=== PATIENT | female | born 1980 | race Caucasian/White ===

== ENCOUNTER 2017-07-14 08:28 | Inpatient (IN) | payer MEDICAID ==
[~2017-07-14] VITALS: Ht 152.4 cm; Wt 100.8 kg
[~2017-07-14 08:28] MED LIST: ASPI-496 PO; ASPI-515 PO; ASPI-650 PO; CARV-39 PO; CHLO25TA PO; CLON0.1T PO; CLON0.1T12 PO; CYCL5TAB PO; DOXA2TAB PO; DOXA4TAB2 PO; HYDR-3240 PO; HYDR100T25 PO; HYDR12.58 PO; IBUP-1223 PO; LISI-167 PO; LISI40TA PO; METH750T87 PO; OMEP40CA6 PO; OXYC5TAB3 PO; PRAV20TA PO; PRAV20TA2 PO; PRAZ5CAP2 PO; SPIR50TA2 PO
[2017-07-14] MEDS ORDERED: AMLO5TAB2 PO (09:17)
[2017-07-14] MEDS ORDERED: ASPIRIN 81 MG TABLET CHEW ONE (09:27)
[2017-07-14] MEDS ORDERED: ONDANSETRON 2MG/ML, 2ML ONE (09:27)
[2017-07-14] MEDS ORDERED: HYDROmorphone 1 MG/ML, 1ML ONE ×4 (09:27→16:22)
[2017-07-14] MEDS ORDERED: LABETALOL 5MG/ML, 20ML ONE (09:28)
[2017-07-14] MEDS ORDERED: ONDANSETRON 2MG/ML, 2ML IVPush ONE (09:30)
[2017-07-14] MEDS ORDERED: ASPIRIN 81 MG TABLET CHEW PO ONE (09:30)
[2017-07-14] MEDS ORDERED: LABETALOL 5MG/ML, 20ML IVPush ONE ×2 (09:30→12:00)
[2017-07-14] MEDS ORDERED: SODIUM CHLORIDE FLUSH 10ML SYR IVF ONE (09:30)
[2017-07-14] MEDS: HYDROmorphone 1 MG/ML, 1ML IVPush PRN ×2 (09:36→10:21)
[2017-07-14 09:47] LABS: HEMATOCRIT 50.8 % (34.6-47.8); HEMOGLOBIN 17.5 g/dL (11.7-16.4); WHITE BLOOD COUNT 10.1 x10^3/uL (3.4-10)
[2017-07-14 09:59] LABS: BLOOD UREA NITROGEN 22 mg/dL (7-18)
[2017-07-14 10:05] LABS: IS PT STATUS REG ER OR PRE ER? YES
[2017-07-14] MEDS ORDERED: SODIUM CHLORIDE FLUSH 10ML SYR IVF PRN (14:00)
[2017-07-14] MEDS ORDERED: ENALAPRILAT 1.25 MG/ML, 2ML IVPush PRN (14:30)
[2017-07-14] MEDS ORDERED: LORazepam 1MG TABLET PO PRN (14:30)
[2017-07-14] MEDS ORDERED: ONDANSETRON 2MG/ML, 2ML IVPush PRN (14:30)
[2017-07-14] MEDS ORDERED: ONDANSETRON ODT 4 MG PO PRN (14:30)
[2017-07-14] MEDS ORDERED: MORPHINE SULFATE 4 MG/ML, 1ML IVPush PRN (14:30)
[2017-07-14] MEDS ORDERED: GUAIFENESIN/DM 200-20MG, 10ML UDC PO PRN (14:30)
[2017-07-14] MEDS ORDERED: POLYETHYLENE GLYCOL 17 GM PACKET PO PRN (14:30)
[2017-07-14] MEDS ORDERED: LABETALOL 5MG/ML, 20ML IVPush PRN (14:30)
[2017-07-14] MEDS ORDERED: ALBUTEROL SULFATE 2.5 MG/3 ML NPPB PRN (15:30)
[2017-07-14 15:57] VITALS: BP 162/111
[2017-07-14] MEDS: HYDROmorphone 1 MG/ML, 1ML IV PRN ×2 (16:25→20:48)
[2017-07-14 17:14] VITALS: BP 151/100
[2017-07-14] MEDS: CHLORTHALIDONE 25 MG TABLET PO SCH (17:14)
[2017-07-14] MEDS: ENOXAPARIN 40 MG/0.4 ML SQ SCH (17:14)
[2017-07-14 20:00] VITALS: BP 156/102
[2017-07-14 20:37] VITALS: BP 162/116
[2017-07-14] MEDS: CARVEDILOL 25 MG TABLET PO SCH (20:42)
[2017-07-14] MEDS: AMLODIPINE 5 MG TABLET PO SCH (20:42)
[2017-07-14] MEDS: PRAVASTATIN 20 MG TABLET PO SCH (20:42)
[2017-07-14 21:50] VITALS: BP 165/114
[2017-07-14] MEDS: HYDROcodone/APAP 5/325 TABLET PO SCH (21:51)
[2017-07-14 23:02] VITALS: BP 131/88
[2017-07-15 02:00] VITALS: BP 132/87
[2017-07-15] MEDS: HYDROmorphone 1 MG/ML, 1ML IV PRN ×2 (03:11→09:18)
[2017-07-15 06:30] VITALS: BP 128/82
[2017-07-15] MEDS: HYDROcodone/APAP 5/325 TABLET PO SCH (09:00)
[2017-07-15] MEDS: CHLORTHALIDONE 25 MG TABLET PO SCH (09:00)
[2017-07-15] MEDS: SENNA/DOCUSATE TABLET PO SCH (09:00)
[2017-07-15] MEDS ORDERED: AMLODIPINE 5 MG TABLET PO SCH (09:00)
[2017-07-15] MEDS: SPIRONOLACTONE 50 MG TABLET PO SCH (09:09)
[2017-07-15] MEDS: ASPIRIN 81 MG TABLET EC PO SCH (09:09)
[2017-07-15] MEDS: LISINOPRIL 20 MG TABLET PO SCH (09:09)
[2017-07-15] MEDS: CARVEDILOL 25 MG TABLET PO SCH ×2 (09:09→20:56)
[2017-07-15] MEDS: AMLODIPINE 5 MG TABLET PO SCH ×2 (09:09→20:56)
[2017-07-15] MEDS: OMEPRAZOLE 20 MG CAPSULE.DR PO SCH (09:09)
[2017-07-15 09:13] LABS: HEMATOCRIT 50.8 % (34.6-47.8); HEMOGLOBIN 17.4 g/dL (11.7-16.4); WHITE BLOOD COUNT 6.6 x10^3/uL (3.4-10)
[2017-07-15 09:17] LABS: BLOOD UREA NITROGEN 20 mg/dL (7-18)
[2017-07-15] MEDS ORDERED: HYDR-3241 PO (09:28)
[2017-07-15 12:38] VITALS: BP 136/86
[2017-07-15] MEDS: ENOXAPARIN 40 MG/0.4 ML SQ SCH (16:30)
[2017-07-15 20:00] VITALS: BP 126/91
[2017-07-15] MEDS: SODIUM CHLORIDE 0.9% 1,000 ML IV SCH (20:55)
[2017-07-15] MEDS: PRAVASTATIN 20 MG TABLET PO SCH (20:55)
[2017-07-16 00:36] VITALS: BP 114/76
[2017-07-16 04:00] VITALS: BP 116/82
[2017-07-16 05:58] LABS: HEMATOCRIT 50.9 % (34.6-47.8); HEMOGLOBIN 17.2 g/dL (11.7-16.4)
[2017-07-16 06:08] LABS: BLOOD UREA NITROGEN 21 mg/dL (7-18)
[2017-07-16] MEDS: SODIUM CHLORIDE 0.9% 1,000 ML IV SCH ×2 (06:09→13:00)
[2017-07-16 06:12] LABS: ASPARTATE AMINO TRANSFERASE 15 U/L (15-37)
[2017-07-16 07:45] VITALS: BP 125/86
[2017-07-16] MEDS: SENNA/DOCUSATE TABLET PO SCH (08:05)
[2017-07-16] MEDS: CHLORTHALIDONE 25 MG TABLET PO SCH (08:05)
[2017-07-16] MEDS: SPIRONOLACTONE 50 MG TABLET PO SCH (08:07)
[2017-07-16] MEDS: OMEPRAZOLE 20 MG CAPSULE.DR PO SCH (08:07)
[2017-07-16] MEDS: ASPIRIN 81 MG TABLET EC PO SCH (08:07)
[2017-07-16] MEDS: LISINOPRIL 20 MG TABLET PO SCH (08:07)
[2017-07-16] MEDS: AMLODIPINE 5 MG TABLET PO SCH (08:07)
[2017-07-16] MEDS: CARVEDILOL 25 MG TABLET PO SCH (08:07)
[2017-07-16] MEDS ORDERED: AMLO5TAB2 PO (09:49)
[2017-07-16] MEDS ORDERED: CHLO25TA PO (09:49)
[2017-07-16 10:30] VITALS: BP 119/79
== END 2017-07-16 13:07 | disposition home or self-care (01) | DRG 305 ==
LOC: ED 10:57 → EDIP 13:31 → 4EST 15:51
PROVIDERS: ADMIT Hospitalist; ATTEND Hospitalist
DX: I13.10 Hypertensive heart and chronic kidney disease without heart failure, with stage 1 through stage 4 chronic kidney disease, or unspecified chronic kidney disease (principal); D75.1 Secondary polycythemia; N18.3 Chronic kidney disease, stage 3 (moderate); Z68.41 Body mass index [BMI] 40.0-44.9, adult; E66.01 Morbid (severe) obesity due to excess calories; M54.5 Low back pain; E78.5 Hyperlipidemia, unspecified; H53.8 Other visual disturbances; F12.90 Cannabis use, unspecified, uncomplicated; Z79.82 Long term (current) use of aspirin; Z79.899 Other long term (current) drug therapy; Z87.891 Personal history of nicotine dependence; Z98.891 History of uterine scar from previous surgery; Z88.8 Allergy status to other drugs, medicaments and biological substances
CPT/HCPCS: 36415; 70450; 71010; 80048; 80053; 81003; 82040; 82570; 84156; 84484; 85025; 93005; 93975; 96374; 96375; 96376; J1170; J1650; J2405; Q0162; J7030

== ENCOUNTER 2018-05-21 10:02 | Inpatient (IN) | payer MEDICAID ==
[~2018-05-21] VITALS: Ht 154.9 cm; Wt 95.3 kg
[~2018-05-21 10:02] MED LIST changes: +AMLO5TAB2 PO; +ATOR40TA78 PO; +HYDR-3241 PO; +HYDR-3245 PO; +HYDR25TA6 PO; +ISOS40TA17 PO; +LABE200T6 PO; +LABE300T2 PO; +MINO2.5T PO; -SPIR50TA2 PO; +SPIR50TA4 PO
[2018-05-21] MEDS ORDERED: LABETALOL 5MG/ML, 20ML IVPush ONE (10:32)
[2018-05-21] MEDS ORDERED: LABETALOL 5MG/ML, 20ML ONE (10:56)
[2018-05-21] MEDS ORDERED: LISINOPRIL 20 MG TABLET ONE (10:56)
[2018-05-21] MEDS ORDERED: ONDANSETRON 2MG/ML, 2ML IVPush ONE (11:00)
[2018-05-21] MEDS ORDERED: SODIUM CHLORIDE FLUSH 10ML SYR IVF ONE (11:00)
[2018-05-21] MEDS ORDERED: LISINOPRIL 20 MG TABLET PO ONE (11:00)
[2018-05-21 11:02] LABS: BASOPHILS # (AUTO) 0.03 x10^3/uL (0-0.1); BASOPHILS % (AUTO) 0 % (0-1); EOSINOPHILS # (AUTO) 0.07 x10^3/uL (0-0.4); EOSINOPHILS % (AUTO) 1 % (1-7); LYMPHOCYTES # (AUTO) 1.99 x10^3/uL (1-3.4); LYMPHOCYTES % (AUTO) 21 % (22-44); MD NO; MEAN CORPUSCULAR HEMOGLOBIN 31.8 pg (27.0-34.8); MEAN CORPUSCULAR HGB CONC 34.2 g/dL (32.4-35.8); MEAN CORPUSCULAR VOLUME 92.9 fL (80-100); MEAN PLATELET VOLUME 9.1 fL (7.4-10.4); MONOCYTES # (AUTO) 0.53 x10^3/uL (0.2-0.8); MONOCYTES % (AUTO) 6 % (2-9); NEUTROPHILS # (AUTO) 7.08 x10^3/uL (1.8-6.8); NEUTROPHILS % (AUTO) 73 % (42-75); PLATELET COUNT 166 x10^3/uL (130-400); RED BLOOD COUNT 5.48 x10^6/uL (3.82-5.3); RED CELL DISTRIBUTION WIDTH 13.7 % (9.6-15.2)
[2018-05-21 11:07] LABS: ALBUMIN 3.8 g/dL (3.4-5.0); ANION GAP 7 mmol/L (5-15); CHLORIDE 111 mmol/L (98-107); CREATININE 1.19 mg/dL (0.55-1.02)
[2018-05-21] MEDS ORDERED: ONDANSETRON 2MG/ML, 2ML ONE (11:08)
[2018-05-21] MEDS ORDERED: HYDROmorphone 2 MG/ML, 1ML ONE ×2 (11:09→12:12)
[2018-05-21] MEDS: HYDROmorphone 2 MG/ML, 1ML IVPush PRN ×2 (11:13→12:13)
[2018-05-21] MEDS ORDERED: LABETALOL 5MG/ML, 20ML IVPush STA (12:29)
[2018-05-21] MEDS ORDERED: ACETAMINOPHEN 325 MG TABLET PO PRN (13:00)
[2018-05-21] MEDS ORDERED: LABETALOL 5MG/ML, 20ML IVPush PRN (13:00)
[2018-05-21] MEDS ORDERED: ENALAPRILAT 1.25 MG/ML, 2ML IVPush PRN (13:00)
[2018-05-21] MEDS ORDERED: hydrALAzine 20 MG/ML, 1ML IVPush PRN (13:00)
[2018-05-21] MEDS ORDERED: LABETALOL 5MG/ML, 20ML IVPush SCH (13:00)
[2018-05-21] MEDS ORDERED: HEPARIN 5,000 UNITS/ML, 1ML SQ SCH (13:00)
[2018-05-21 14:00] VITALS: BP 200/138
[2018-05-21] MEDS ORDERED: HYDR-879 PO (14:13)
[2018-05-21] MEDS ORDERED: OMEP40CA6 PO (14:22)
[2018-05-21] MEDS ORDERED: DOXA8TAB63 PO (14:22)
[2018-05-21] MEDS ORDERED: ISOS40TA11 PO (14:22)
[2018-05-21] MEDS ORDERED: ASPI-496 PO (14:22)
[2018-05-21] MEDS ORDERED: LABE200T6 PO (14:22)
[2018-05-21] MEDS ORDERED: MINO2.5T PO (14:22)
[2018-05-21] MEDS ORDERED: ATOR40TA PO (14:22)
[2018-05-21] MEDS ORDERED: PRAV20TA2 PO (14:22)
[2018-05-21] MEDS ORDERED: LISI40TA PO (14:22)
[2018-05-21] MEDS ORDERED: IBUPROFEN 200 MG TABLET PO PRN (15:00)
[2018-05-21] MEDS ORDERED: ASA/APAP/ CAFFEINE TABLET PO PRN (15:00)
[2018-05-21] MEDS ORDERED: SUMATRIPTAN 25 MG TABLET PO PRN (15:00)
[2018-05-21] MEDS ORDERED: BUTALB/APAP/CAFFEINE 50MG/325MG/40MG PO PRN (15:00)
[2018-05-21] MEDS ORDERED: HYDROcodone/APAP 10/325 MG TABLET PO PRN (15:30)
[2018-05-21 15:55] VITALS: BP 196/140
[2018-05-21] MEDS ORDERED: ISOSORBIDE DINITRATE 20 MG TABLET PO SCH (16:00)
[2018-05-21] MEDS ORDERED: LORazepam 2 MG/ML, 1ML IVPush ONE (16:30)
[2018-05-21] MEDS ORDERED: DOXAZOSIN 2MG TABLET PO SCH (21:00)
[2018-05-21] MEDS ORDERED: LISINOPRIL 20 MG TABLET PO SCH (21:00)
[2018-05-21] MEDS ORDERED: PRAVASTATIN 20 MG TABLET PO SCH (21:00)
[2018-05-21] MEDS ORDERED: LABETALOL 200 MG TABLET PO SCH (21:00)
[2018-05-22] MEDS ORDERED: OMEPRAZOLE 20 MG CAPSULE.DR PO SCH (09:00)
[2018-05-22] MEDS ORDERED: ASPIRIN 81 MG TABLET EC PO SCH (09:00)
[2018-05-22] MEDS ORDERED: MINOXIDIL 2.5 MG TABLET PO SCH (09:00)
== END 2018-05-21 16:41 | disposition left against medical advice (07) | DRG 305 ==
LOC: ED 11:09 → EDIP 12:30 → OBSVTOIN 12:56 → 4EST 13:42
PROVIDERS: ADMIT Internal Medicine; ATTEND Hospitalist
DX: I16.9 Hypertensive crisis, unspecified (principal); F11.20 Opioid dependence, uncomplicated; I42.9 Cardiomyopathy, unspecified; N17.9 Acute kidney failure, unspecified; E66.01 Morbid (severe) obesity due to excess calories; E78.00 Pure hypercholesterolemia, unspecified; G89.29 Other chronic pain; K21.9 Gastro-esophageal reflux disease without esophagitis; Z90.49 Acquired absence of other specified parts of digestive tract; N18.3 Chronic kidney disease, stage 3 (moderate); H54.62 Unqualified visual loss, left eye, normal vision right eye; I13.10 Hypertensive heart and chronic kidney disease without heart failure, with stage 1 through stage 4 chronic kidney disease, or unspecified chronic kidney disease; Z88.5 Allergy status to narcotic agent; Z88.8 Allergy status to other drugs, medicaments and biological substances
CPT/HCPCS: 36415; 71045; 80048; 82040; 85025; 93005; 96374; 96375; 96376; 99285; J1170; J2405; G0378

== ENCOUNTER → 2019-01-13 | Outpatient (CLI) | payer MEDICAID ==
[~2019-01-13] MED LIST changes: +AMLO-150 PO; -AMLO5TAB2 PO; +ATOR40TA PO; -CLON0.1T PO; +CLON0.1T22 PO; +DOXA8TAB63 PO; +HYDR-3622 PO; -HYDR12.58 PO; +HYDROCHLOROTH12.5 MG PO; +ISOS40TA11 PO
== END | disposition home or self-care (01) ==
LOC: CFH 09:03
PROVIDERS: ATTEND Nurse Practitioner
DX: M51.16 Intervertebral disc disorders with radiculopathy, lumbar region (principal); M48.061 Spinal stenosis, lumbar region without neurogenic claudication; M43.16 Spondylolisthesis, lumbar region
CPT/HCPCS: 72114

== ENCOUNTER 2019-03-12 08:06 | Outpatient (CLI) | payer MEDICAID ==
[2019-03-12] MEDS ORDERED: SPIR25TA5 PO (17:35)
== END 2019-03-12 23:59 | disposition home or self-care (01) ==
LOC: LAB 08:06 → CFH 23:59
PROVIDERS: ATTEND Nurse Practitioner
DX: M25.562 Pain in left knee (principal)

== ENCOUNTER 2019-03-12 09:29 | Inpatient (IN) | payer MEDICAID ==
[~2019-03-12] VITALS: Ht 152.4 cm; Wt 95.7 kg
--- NOTE | 2019-03-12 09:53 | NUR ---
First contact with pt. 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 Pt also c/o AU. A&O x4, no neuro defecits noted. Pt placed in gown, positioned for comfort in bed. Continuous heart, oxygen and BP monitors applied, all safety measures observed.
[2019-03-12] MEDS ORDERED: LABETALOL 5MG/ML, 20ML IVPush ONE (10:00)
[2019-03-12] MEDS ORDERED: METOCLOPRAMIDE 5 MG/ML, 2ML IVPush ONE (10:00)
[2019-03-12] MEDS ORDERED: METOCLOPRAMIDE 5 MG/ML, 2ML ONE (10:15)
--- NOTE | 2019-03-12 10:18 | NUR ---
Med requested from pharmacy
[2019-03-12] MEDS ORDERED: ENALAPRILAT 1.25 MG/ML, 1ML ONE ×2 (10:21→11:32)
[2019-03-12] MEDS ORDERED: LABETALOL 5 MG/ML SYRINGE IVPush ONE (10:30)
[2019-03-12] MEDS ORDERED: ENALAPRILAT 1.25 MG/ML, 2ML IV ONE ×2 (10:30→11:30)
--- NOTE | 2019-03-12 10:31 | NUR ---
Pt medicated per DEC. Awaiting Labetalol from pharmacy.
[2019-03-12 10:40] LABS: BASOPHILS # (AUTO) 0.02 x10^3/uL (0-0.1); BASOPHILS % (AUTO) 0 % (0-1); EOSINOPHILS # (AUTO) 0.03 x10^3/uL (0-0.4); EOSINOPHILS % (AUTO) 0 % (1-7); LYMPHOCYTES % (AUTO) 18 % (22-44); MD NO; MEAN CORPUSCULAR HEMOGLOBIN 32.2 pg (27.0-34.8); MEAN CORPUSCULAR HGB CONC 33.6 g/dL (32.4-35.8); MEAN CORPUSCULAR VOLUME 95.9 fL (80-100); MEAN PLATELET VOLUME 9.5 fL (7.4-10.4); MONOCYTES # (AUTO) 0.43 x10^3/uL (0.2-0.8); MONOCYTES % (AUTO) 5 % (2-9); NEUTROPHILS # (AUTO) 7.39 x10^3/uL (1.8-6.8); NEUTROPHILS % (AUTO) 77 % (42-75); PLATELET COUNT 186 x10^3/uL (130-400); RED BLOOD COUNT 5.84 x10^6/uL (3.82-5.3); RED CELL DISTRIBUTION WIDTH 13.3 % (9.6-15.2)
[2019-03-12 10:41] LABS: ALBUMIN 4.1 g/dL (3.4-5.0); ANION GAP 9 mmol/L (5-15); CALCIUM 9.6 mg/dL (8.5-10.1); CHLORIDE 108 mmol/L (98-107); CREATININE 1.54 mg/dL (0.55-1.02)
--- NOTE | 2019-03-12 10:43 | NUR ---
Labetalol received from pharmacy. Pt medicated per DEC, denies other needs.
[2019-03-12] MEDS ORDERED: HYDROcodone/APAP 10/325 MG TABLET ONE (10:59)
[2019-03-12] MEDS ORDERED: HYDROcodone/APAP 10/325 MG TABLET PO ONE (11:00)
--- NOTE | 2019-03-12 11:52 | NUR ---
TASK RN: FIRST CONTACT WITH PT. RECEIVED BEDSIDE REPORT FROM JITENDRA CUETO. ALL QUESTIONS ANSWERED. Pt resting on gurney connected to NIBP, continous pulse ox, and clinical research monitor. Pt received medications per EMAR from primary RN prior to Task RN taking care of pt. Pt is hypertensive at 227/128, pt received medicaitons for hypertension. When pt's blood pressure is stable pt will go to [facility]. NADN. Both bedrails up for safety measures. Call light within reach. Family at bedside.
--- NOTE | 2019-03-12 12:41 | NUR ---
Pt in MRI at this time.
[2019-03-12] MEDS ORDERED: ASPIRIN 325 MG TABLET PO ONE (14:00)
[2019-03-12] MEDS ORDERED: ASPIRIN 325 MG TABLET ONE (14:12)
[2019-03-12] MEDS ORDERED: ENALAPRILAT 1.25 MG/ML, 2ML IV PRN (15:00)
[2019-03-12] MEDS ORDERED: LABETALOL 5 MG/ML SYRINGE IV PRN (15:00)
[2019-03-12] MEDS ORDERED: HYDROcodone/APAP 10/325 MG TABLET PO PRN (15:00)
[2019-03-12] MEDS ORDERED: HYDROmorphone 2 MG/ML, 1ML ONE (15:15)
[2019-03-12] MEDS: HYDROmorphone 2 MG/ML, 1ML IVPush PRN ×3 (15:21→23:37)
[2019-03-12] MEDS: ENOXAPARIN 40 MG/0.4 ML SQ SCH (15:21)
[2019-03-12] MEDS: ONDANSETRON 2MG/ML, 2ML IVPush PRN ×2 (15:24→23:37)
[2019-03-12] MEDS ORDERED: POTASSIUM CHLORIDE 20 MEQ TAB.ER.PRT PO ONE (15:30)
[2019-03-12] MEDS ORDERED: SPIR25TA5 PO (17:35)
[2019-03-12] MEDS: PRAVASTATIN 20 MG TABLET PO SCH (20:56)
[2019-03-12] MEDS: LATANOPROST OPHTH 0.005%, 2.5ML EACHEYE SCH (20:57)
[2019-03-13 04:50] LABS: CHOL/HDL RATIO 3.8; LDL/HDL RATIO 1.7 (0.5-3.0)
[2019-03-13] MEDS: HYDROmorphone 2 MG/ML, 1ML IVPush PRN ×4 (05:46→22:42)
[2019-03-13 09:11] LABS: BASOPHILS # (AUTO) 0.04 x10^3/uL (0-0.1); BASOPHILS % (AUTO) 0 % (0-1); EOSINOPHILS # (AUTO) 0.15 x10^3/uL (0-0.4); EOSINOPHILS % (AUTO) 2 % (1-7); LYMPHOCYTES # (AUTO) 2.82 x10^3/uL (1-3.4); LYMPHOCYTES % (AUTO) 31 % (22-44); MD NO; MEAN CORPUSCULAR HEMOGLOBIN 31.9 pg (27.0-34.8); MEAN CORPUSCULAR HGB CONC 33.4 g/dL (32.4-35.8); MEAN CORPUSCULAR VOLUME 95.6 fL (80-100); MONOCYTES # (AUTO) 0.56 x10^3/uL (0.2-0.8); MONOCYTES % (AUTO) 6 % (2-9); NEUTROPHILS % (AUTO) 61 % (42-75); PLATELET COUNT 147 x10^3/uL (130-400); RED BLOOD COUNT 5.38 x10^6/uL (3.82-5.3); RED CELL DISTRIBUTION WIDTH 13.4 % (9.6-15.2)
[2019-03-13 09:21] LABS: ANION GAP 8 mmol/L (5-15); CALCIUM 8.3 mg/dL (8.5-10.1); CHLORIDE 109 mmol/L (98-107); CREATININE 1.38 mg/dL (0.55-1.02)
[2019-03-13] MEDS ORDERED: AMLODIPINE 5 MG TABLET PO ONE (09:30)
[2019-03-13] MEDS ORDERED: POTASSIUM CHLORIDE 20 MEQ TAB.ER.PRT PO ONE (09:30)
[2019-03-13] MEDS: ASPIRIN 81 MG TABLET EC PO SCH (10:10)
[2019-03-13] MEDS: DOXAZOSIN 2MG TABLET PO SCH ×2 (10:10→21:05)
[2019-03-13] MEDS: LISINOPRIL 20 MG TABLET PO SCH ×2 (10:10→21:05)
[2019-03-13] MEDS: LABETALOL 200 MG TABLET PO SCH ×3 (10:11→21:04)
--- NOTE | 2019-03-13 10:42 | NUR ---
REC: Regular/thins Addendum: 03/13/19 at 1042 by Vilma HERNANDEZ Amended: Links added.
[2019-03-13] MEDS: ENOXAPARIN 40 MG/0.4 ML SQ SCH (16:00)
[2019-03-13 16:58] VITALS: BP 145/87
[2019-03-13 18:55] VITALS: BP 131/90
[2019-03-13] MEDS: LATANOPROST OPHTH 0.005%, 2.5ML EACHEYE SCH (21:03)
[2019-03-13] MEDS: PRAVASTATIN 20 MG TABLET PO SCH (21:04)
[2019-03-13] MEDS ORDERED: CALCIUM CARBONATE 500 MG TAB.CHEW PO PRN (22:00)
[2019-03-13] MEDS ORDERED: OMEPRAZOLE 20 MG CAPSULE.DR PO SCH (22:00)
[2019-03-14 00:21] VITALS: BP 155/101
[2019-03-14 05:17] LABS: BASOPHILS # (AUTO) 0.04 x10^3/uL (0-0.1); BASOPHILS % (AUTO) 1 % (0-1); EOSINOPHILS # (AUTO) 0.17 x10^3/uL (0-0.4); EOSINOPHILS % (AUTO) 2 % (1-7); LYMPHOCYTES # (AUTO) 2.09 x10^3/uL (1-3.4); LYMPHOCYTES % (AUTO) 24 % (22-44); MD NO; MEAN CORPUSCULAR HEMOGLOBIN 32.5 pg (27.0-34.8); MEAN CORPUSCULAR HGB CONC 33.7 g/dL (32.4-35.8); MEAN CORPUSCULAR VOLUME 96.6 fL (80-100); MEAN PLATELET VOLUME 8.7 fL (7.4-10.4); MONOCYTES # (AUTO) 0.53 x10^3/uL (0.2-0.8); MONOCYTES % (AUTO) 6 % (2-9); NEUTROPHILS # (AUTO) 5.81 x10^3/uL (1.8-6.8); NEUTROPHILS % (AUTO) 67 % (42-75); PLATELET COUNT 160 x10^3/uL (130-400); RED BLOOD COUNT 4.93 x10^6/uL (3.82-5.3); RED CELL DISTRIBUTION WIDTH 13.5 % (9.6-15.2)
[2019-03-14 05:34] LABS: ANION GAP 7 mmol/L (5-15); CALCIUM 8.5 mg/dL (8.5-10.1); CHLORIDE 108 mmol/L (98-107)
[2019-03-14 05:39] LABS: ALANINE AMINOTRANSFERASE 19 U/L (12-78); ALBUMIN 3.2 g/dL (3.4-5.0); ALKALINE PHOSPHATASE 59 U/L (45-117); BILIRUBIN,TOTAL 1.1 mg/dL (0.2-1.0); CREATININE 1.36 mg/dL (0.55-1.02); TOTAL PROTEIN 6.1 g/dL (6.4-8.2)
[2019-03-14 05:41] VITALS: BP 158/91
[2019-03-14] MEDS: LABETALOL 200 MG TABLET PO SCH (05:42)
[2019-03-14 07:08] VITALS: BP 150/96
[2019-03-14] MEDS ORDERED: AMLODIPINE 5 MG TABLET PO SCH (09:00)
[2019-03-14] MEDS: ASPIRIN 81 MG TABLET EC PO SCH (09:01)
[2019-03-14] MEDS: DOXAZOSIN 2MG TABLET PO SCH (09:01)
[2019-03-14] MEDS: LISINOPRIL 20 MG TABLET PO SCH (09:02)
[2019-03-14] MEDS: HYDROmorphone 2 MG/ML, 1ML IVPush PRN (09:48)
[2019-03-14] MEDS ORDERED: LATA2.5D3 EACHEYE (11:58)
[2019-03-14] MEDS ORDERED: AMLO-150 PO (11:58)
[2019-03-14] MEDS ORDERED: LABE200T6 PO (11:58)
[2019-03-14] MEDS ORDERED: LISI-170 PO (11:58)
[2019-03-14] MEDS ORDERED: DOXA2TAB9 PO (11:58)
== END 2019-03-14 14:27 | disposition home health service (06) | DRG 65 ==
LOC: ED 11:17 → EDIP 12:02 → CCU 14:31 → 4WST 03-13 16:09
PROVIDERS: ADMIT Internal Medicine; ATTEND Internal Medicine
DX: I63.9 Cerebral infarction, unspecified (principal); I16.1 Hypertensive emergency; F11.20 Opioid dependence, uncomplicated; I42.9 Cardiomyopathy, unspecified; I50.20 Unspecified systolic (congestive) heart failure; N17.9 Acute kidney failure, unspecified; D75.1 Secondary polycythemia; E78.00 Pure hypercholesterolemia, unspecified; E78.5 Hyperlipidemia, unspecified; E87.6 Hypokalemia; G89.29 Other chronic pain; H54.61 Unqualified visual loss, right eye, normal vision left eye; H54.62 Unqualified visual loss, left eye, normal vision right eye; I12.9 Hypertensive chronic kidney disease with stage 1 through stage 4 chronic kidney disease, or unspecified chronic kidney disease; H53.8 Other visual disturbances; K21.9 Gastro-esophageal reflux disease without esophagitis; N18.3 Chronic kidney disease, stage 3 (moderate); Z87.891 Personal history of nicotine dependence; Z90.01 Acquired absence of eye; Z91.14 Patient's other noncompliance with medication regimen; Z90.49 Acquired absence of other specified parts of digestive tract; Z88.5 Allergy status to narcotic agent; Z88.8 Allergy status to other drugs, medicaments and biological substances; Z79.82 Long term (current) use of aspirin; Z79.899 Other long term (current) drug therapy; Z91.040 Latex allergy status; Z91.018 Allergy to other foods
CPT/HCPCS: 0399T; 36415; 70540; 70544; 70551; 80048; 80053; 80061; 82040; 85025; 87081; 93005; 93306; 93880; 96365; 96375; G0378; J1170; J1650; J2405; J7060; J2765; J7050

== ENCOUNTER 2019-12-13 12:12 | Emergency (ER) | payer MEDICAID ==
[~2019-12-13] VITALS: Ht 152.4 cm; Wt 87.9 kg
[~2019-12-13 12:12] MED LIST changes: +DOXA2TAB9 PO; +LATA2.5D3 EACHEYE; +LISI-170 PO; +OMEP40CA42 PO; -OMEP40CA6 PO; +SPIR25TA5 PO
[2019-12-13] MEDS ORDERED: SODIUM CHLORIDE 0.9% 1,000 ML IV ONE (12:35)
[2019-12-13] MEDS ORDERED: ONDANSETRON 2MG/ML, 2ML ONE (12:47)
[2019-12-13] MEDS ORDERED: ONDANSETRON 2MG/ML, 2ML IVPush ONE (13:00)
[2019-12-13] MEDS ORDERED: SODIUM CHLORIDE FLUSH 10ML SYR IVF ONE (13:00)
[2019-12-13] MEDS ORDERED: SODIUM CHLORIDE 0.9% 1,000ML IVBOLUS ONE (13:00)
[2019-12-13 13:03] LABS: BASOPHILS # (AUTO) 0.03 x10^3/uL (0-0.1); BASOPHILS % (AUTO) 0 % (0-1); EOSINOPHILS # (AUTO) 0.32 x10^3/uL (0-0.4); EOSINOPHILS % (AUTO) 4 % (1-7); LYMPHOCYTES % (AUTO) 27 % (22-44); MD NO; MEAN CORPUSCULAR HEMOGLOBIN 31.3 pg (27.0-34.8); MEAN CORPUSCULAR HGB CONC 33.7 g/dL (32.4-35.8); MEAN PLATELET VOLUME 9.1 fL (7.4-10.4); MONOCYTES # (AUTO) 0.79 x10^3/uL (0.2-0.8); MONOCYTES % (AUTO) 11 % (2-9); NEUTROPHILS % (AUTO) 58 % (42-75); PLATELET COUNT 161 x10^3/uL (130-400); RED BLOOD COUNT 5.93 x10^6/uL (3.82-5.3); RED CELL DISTRIBUTION WIDTH 12.9 % (9.6-15.2)
[2019-12-13 13:11] LABS: ALANINE AMINOTRANSFERASE 30 U/L (12-78); ALBUMIN 3.8 g/dL (3.4-5.0); ANION GAP 13 mmol/L (5-15); CALCIUM 9.1 mg/dL (8.5-10.1); CHLORIDE 101 mmol/L (98-107); CREATININE 1.67 mg/dL (0.55-1.02)
[2019-12-13 13:14] LABS: ALKALINE PHOSPHATASE 68 U/L (45-117); BILIRUBIN,TOTAL 0.4 mg/dL (0.2-1.0); TOTAL PROTEIN 8.2 g/dL (6.4-8.2)
--- NOTE | 2019-12-13 13:23 | NUR ---
BACK FROM XR. MEDS PER DEC. C/O AU, DIZZY, NAUSEA IMPROVED. FLUIDS INFUSED.
--- NOTE | 2019-12-13 14:02 | NUR ---
BREAK RN: PT SITTING UP ON GURNEY AWAKE & COMFORTABLE, RESPONDS APPROP TO STAFF, NAD, [place]ANDA[place]IES [place] AT THIS TIME, COMFORT MEASURES PROVIDED, CALL LIGHT WITHIN REACH.
[2019-12-13 14:16] LABS: MICROSCOPIC INDICATED
[2019-12-13 14:18] LABS: CULTURE INDICATED? YES
[2019-12-13 14:57] VITALS: BP 170/102
--- NOTE | 2019-12-13 14:57 | NUR ---
2ND LITER INFUSED. VS IMPROVED. PT ASKING TO GO HOME. WILL NOTIFY
--- NOTE | 2019-12-13 15:09 | NUR ---
PO CHALLENGE IN PROGRESS. LANETTE UPDATED ON PT CONDITION.
--- NOTE | 2019-12-13 15:15 | NUR ---
REPORT TO MAURIZIO HAM.
--- NOTE | 2019-12-13 15:21 | NUR ---
REPORT FROM JITENDRA TAFOYA. PT SITTING UP IN [facility] NOTED. AWAITING DISPO S/P PO CHALLENGE.
--- NOTE | 2019-12-13 15:42 | NUR ---
DENIES N/V. DC EDUCATION PROVIDED,PT DEMONSTRATES UNDERSTANDING. PT AMBULATED STEADILY TO DC WITH RN. FRIEND TO TRANSPORT PT HOME.
== END 2019-12-13 15:44 | disposition home or self-care (01) ==
LOC: ED 15:33
DX: R11.2 Nausea with vomiting, unspecified (principal); E86.0 Dehydration; I10 Essential (primary) hypertension; Z87.891 Personal history of nicotine dependence
CPT/HCPCS: 36415; 74021; 80053; 81001; 83690; 85025; 87086; 93005; 96361; 96374; 99285; J2405; J7030

== ENCOUNTER 2020-06-19 06:32 | Inpatient (IN) | payer MEDICAID ==
[~2020-06-19] VITALS: Ht 152.4 cm; Wt 83.8 kg
--- NOTE | 2020-06-19 06:43 | NUR ---
triage note: EKG done in triage
[2020-06-19] MEDS ORDERED: SODIUM CHLORIDE FLUSH 10ML SYR IVF ONE (07:30)
[2020-06-19] MEDS ORDERED: PROCHLORPERAZINE 5 MG/ML, 2ML IVPush ONE (07:30)
[2020-06-19] MEDS ORDERED: ENALAPRILAT 1.25 MG/ML, 2ML IV ONE (07:30)
[2020-06-19] MEDS ORDERED: KETOROLAC 30 MG/1 ML IVPush ONE (07:30)
[2020-06-19] MEDS ORDERED: KETOROLAC 30 MG/1 ML ONE (07:32)
[2020-06-19] MEDS ORDERED: PROCHLORPERAZINE 5 MG/ML, 2ML ONE (07:32)
[2020-06-19] MEDS ORDERED: ENALAPRILAT 1.25 MG/ML, 1ML ONE ×2 (07:33→07:38)
[2020-06-19 07:44] LABS: BASOPHILS # (AUTO) 0.05 x10^3/uL (0-0.1); BASOPHILS % (AUTO) 1 % (0-1); EOSINOPHILS % (AUTO) 0 % (1-7); LYMPHOCYTES # (AUTO) 1.33 x10^3/uL (1-3.4); LYMPHOCYTES % (AUTO) 12 % (22-44); MD NO; MEAN CORPUSCULAR HEMOGLOBIN 31.4 pg (27.0-34.8); MEAN CORPUSCULAR VOLUME 95.2 fL (80-100); MEAN PLATELET VOLUME 9.4 fL (7.4-10.4); MONOCYTES # (AUTO) 0.31 x10^3/uL (0.2-0.8); MONOCYTES % (AUTO) 3 % (2-9); NEUTROPHILS # (AUTO) 9.43 x10^3/uL (1.8-6.8); NEUTROPHILS % (AUTO) 85 % (42-75); PLATELET COUNT 154 x10^3/uL (130-400); RED BLOOD COUNT 5.98 x10^6/uL (3.82-5.3); RED CELL DISTRIBUTION WIDTH 13.3 % (9.6-15.2)
--- NOTE | 2020-06-19 07:45 | NUR ---
TASK RN: MEDICATIONS ADMINISTERED PER ORDER.
[2020-06-19 07:53] LABS: ANION GAP 9 mmol/L (5-15); CALCIUM 9.5 mg/dL (8.5-10.1); CHLORIDE 111 mmol/L (98-107)
[2020-06-19 07:59] LABS: ALANINE AMINOTRANSFERASE 21 U/L (12-78); ALKALINE PHOSPHATASE 66 U/L (45-117); BILIRUBIN,TOTAL 1.1 mg/dL (0.2-1.0); CREATININE 1.66 mg/dL (0.55-1.02); TOTAL PROTEIN 7.9 g/dL (6.4-8.2); TROPONIN I 0.035 ng/mL (0.000-0.045)
[2020-06-19] MEDS ORDERED: HYDROmorphone 2 MG/ML, 1ML IVPush PRN (08:00)
--- NOTE | 2020-06-19 08:06 | NUR ---
ENTERED PT ROOM, PT STATES "I'M FREAKING OUT AND HAVING A PANIC ATTACK, THIS BLOOD PRESSURE CUFF IS TOO HIGH AND I FEEL LIKE I'M CRAWLING OUT OF MY SKIN, I CAN'T HANDLE IT FOR THE LOVE OF GOD". MANUAL BP TAKEN, PT STATES SHE STILL HAS AU, PT MEDICATED PER MAR WITH DILAUDID.
[2020-06-19] MEDS ORDERED: HYDROmorphone 1 MG/ML, 1ML INJ ONE (08:08)
[2020-06-19] MEDS ORDERED: LABETALOL 5MG/ML, 20ML ONE (08:29)
[2020-06-19] MEDS ORDERED: LABETALOL 5MG/ML, 20ML IVPush ONE (08:30)
--- NOTE | 2020-06-19 09:17 | NUR ---
REPORT TO COY HAM
[2020-06-19] MEDS ORDERED: CLON0.1T22 PO (09:28)
[2020-06-19 09:59] VITALS: BP 242/130
[2020-06-19] MEDS ORDERED: DOXA4TAB3 PO (10:33)
[2020-06-19] MEDS: HYDROmorphone 2 MG/ML, 1ML IVPush PRN ×2 (10:58→20:18)
[2020-06-19] MEDS ORDERED: ACETAMINOPHEN 325 MG TABLET PO PRN (11:00)
[2020-06-19] MEDS ORDERED: LABETALOL 5MG/ML, 20ML IVPush PRN (11:00)
[2020-06-19] MEDS ORDERED: ONDANSETRON 2MG/ML, 2ML IVPush PRN (11:00)
[2020-06-19] MEDS ORDERED: POLYETHYLENE GLYCOL 17 GM PACKET PO PRN (11:00)
[2020-06-19] MEDS ORDERED: BISACODYL 10 MG SUPP PR PRN (11:00)
[2020-06-19] MEDS ORDERED: ENALAPRILAT 1.25 MG/ML, 2ML IVPush PRN (11:00)
[2020-06-19 13:10] LABS: AMPHETAMINE SCREEN, URINE Negative (Negative); BARBITURATE SCREEN, URINE Negative (Negative); BENZODIAZEPINE SCREEN, URINE Negative (Negative); CANNABINOID SCREEN, URINE Positive (Negative); COCAINE SCREEN, URINE Negative (Negative); METHADONE SCREEN, URINE Negative (Negative); OPIATE SCREEN, URINE Positive (Negative)
[2020-06-19] MEDS ORDERED: POTASSIUM CHLORIDE 20 MEQ TAB.ER.PRT PO ONE (14:30)
[2020-06-19] MEDS: OXYcodone IR 5MG TABLET PO PRN (15:19)
[2020-06-19] MEDS ORDERED: LABETALOL 200 MG TABLET PO SCH (16:00)
[2020-06-19] MEDS: DOXAZOSIN 2MG TABLET PO SCH (20:14)
[2020-06-19] MEDS: LISINOPRIL 40 MG TABLET PO SCH (20:15)
[2020-06-19] MEDS: PRAVASTATIN 20 MG TABLET PO SCH (20:15)
[2020-06-19] MEDS: LATANOPROST OPHTH 0.005%, 2.5ML EACHEYE SCH (21:00)
[2020-06-19] MEDS: LABETALOL 300 MG TABLET PO SCH ×2 (22:42→22:43)
[2020-06-20 04:00] VITALS: BP 147/90
[2020-06-20] MEDS: HYDROmorphone 2 MG/ML, 1ML IVPush PRN ×2 (04:02→13:18)
[2020-06-20 04:39] LABS: BASOPHILS # (AUTO) 0.05 x10^3/uL (0-0.1); BASOPHILS % (AUTO) 1 % (0-1); EOSINOPHILS # (AUTO) 0.01 x10^3/uL (0-0.4); EOSINOPHILS % (AUTO) 0 % (1-7); LYMPHOCYTES # (AUTO) 1.98 x10^3/uL (1-3.4); LYMPHOCYTES % (AUTO) 18 % (22-44); MD NO; MEAN CORPUSCULAR HEMOGLOBIN 32.4 pg (27.0-34.8); MEAN CORPUSCULAR HGB CONC 33.9 g/dL (32.4-35.8); MEAN CORPUSCULAR VOLUME 95.5 fL (80-100); MEAN PLATELET VOLUME 9.2 fL (7.4-10.4); MONOCYTES # (AUTO) 0.52 x10^3/uL (0.2-0.8); MONOCYTES % (AUTO) 5 % (2-9); NEUTROPHILS # (AUTO) 8.25 x10^3/uL (1.8-6.8); NEUTROPHILS % (AUTO) 76 % (42-75); PLATELET COUNT 144 x10^3/uL (130-400); RED BLOOD COUNT 5.34 x10^6/uL (3.82-5.3); RED CELL DISTRIBUTION WIDTH 13.6 % (9.6-15.2)
[2020-06-20 04:49] LABS: ALBUMIN 3.6 g/dL (3.4-5.0); ANION GAP 8 mmol/L (5-15); CALCIUM 8.9 mg/dL (8.5-10.1); CHLORIDE 109 mmol/L (98-107)
[2020-06-20 04:54] LABS: ALANINE AMINOTRANSFERASE 17 U/L (12-78); ALKALINE PHOSPHATASE 56 U/L (45-117); BILIRUBIN,TOTAL 1.3 mg/dL (0.2-1.0); CREATININE 1.67 mg/dL (0.55-1.02)
[2020-06-20] MEDS: OMEPRAZOLE 20 MG CAPSULE.DR PO SCH (06:21)
[2020-06-20] MEDS: LISINOPRIL 40 MG TABLET PO SCH ×2 (08:35→21:40)
[2020-06-20] MEDS: DOXAZOSIN 2MG TABLET PO SCH ×3 (08:35→21:40)
[2020-06-20] MEDS: AMLODIPINE 10 MG TAB PO SCH (08:36)
[2020-06-20] MEDS: SENNA/DOCUSATE TABLET PO SCH (08:37)
[2020-06-20] MEDS: OXYcodone IR 5MG TABLET PO PRN ×4 (08:37→21:41)
[2020-06-20] MEDS: CHLORTHALIDONE 25 MG TABLET PO SCH (12:31)
[2020-06-20] MEDS ORDERED: hydrALAzine 20 MG/ML, 1ML IV PRN (13:30)
[2020-06-20] MEDS ORDERED: LABETALOL 5MG/ML, 20ML IVPush PRN (14:00)
[2020-06-20] MEDS: LABETALOL 300 MG TABLET PO SCH ×2 (16:16→21:40)
[2020-06-20] MEDS ORDERED: cloniDINE 0.1MG PATCH TD SCH (16:30)
[2020-06-20 17:36] VITALS: BP 138/89
[2020-06-20 18:40] VITALS: BP 142/86
[2020-06-20] MEDS: PRAVASTATIN 20 MG TABLET PO SCH (21:40)
[2020-06-20] MEDS: LATANOPROST OPHTH 0.005%, 2.5ML EACHEYE SCH (22:15)
[2020-06-21 01:01] VITALS: BP 136/78
[2020-06-21] MEDS: OXYcodone IR 5MG TABLET PO PRN ×2 (03:47→08:36)
[2020-06-21] MEDS: OMEPRAZOLE 20 MG CAPSULE.DR PO SCH (05:26)
[2020-06-21 07:05] VITALS: BP 155/89
[2020-06-21] MEDS: CHLORTHALIDONE 25 MG TABLET PO SCH (08:27)
[2020-06-21] MEDS: DOXAZOSIN 2MG TABLET PO SCH (08:27)
[2020-06-21] MEDS: LABETALOL 300 MG TABLET PO SCH (08:28)
[2020-06-21] MEDS: LISINOPRIL 40 MG TABLET PO SCH (08:28)
[2020-06-21] MEDS: SENNA/DOCUSATE TABLET PO SCH (08:28)
[2020-06-21] MEDS: AMLODIPINE 10 MG TAB PO SCH (08:28)
[2020-06-21] MEDS ORDERED: LABE300T2 PO (10:35)
[2020-06-21] MEDS ORDERED: CLON1PAT TD (10:35)
[2020-06-21] MEDS ORDERED: LABETALOL 300 MG TABLET PO SCH (21:00)
== END 2020-06-21 11:50 | disposition home or self-care (01) | DRG 304 ==
LOC: ED 07:53 → CCU 08:55 → ED 10:24 → 5SO 06-20 17:30 → DCLOUNGE 06-21 11:40
PROVIDERS: ADMIT Internal Medicine; ATTEND Internal Medicine
DX: I16.1 Hypertensive emergency (principal); N17.0 Acute kidney failure with tubular necrosis; I50.32 Chronic diastolic (congestive) heart failure; D72.828 Other elevated white blood cell count; E78.00 Pure hypercholesterolemia, unspecified; E78.5 Hyperlipidemia, unspecified; E87.6 Hypokalemia; F12.90 Cannabis use, unspecified, uncomplicated; F17.210 Nicotine dependence, cigarettes, uncomplicated; G89.29 Other chronic pain; H54.62 Unqualified visual loss, left eye, normal vision right eye; I25.2 Old myocardial infarction; I35.1 Nonrheumatic aortic (valve) insufficiency; J45.909 Unspecified asthma, uncomplicated; K21.9 Gastro-esophageal reflux disease without esophagitis; N18.3 Chronic kidney disease, stage 3 (moderate); Z79.891 Long term (current) use of opiate analgesic; Z82.49 Family history of ischemic heart disease and other diseases of the circulatory system; Z86.73 Personal history of transient ischemic attack (TIA), and cerebral infarction without residual deficits; Z98.891 History of uterine scar from previous surgery; F41.9 Anxiety disorder, unspecified; Z79.899 Other long term (current) drug therapy; Z88.8 Allergy status to other drugs, medicaments and biological substances; Z88.5 Allergy status to narcotic agent; Z91.040 Latex allergy status; Z91.018 Allergy to other foods; Z90.49 Acquired absence of other specified parts of digestive tract; D72.829 Elevated white blood cell count, unspecified; Z87.891 Personal history of nicotine dependence
CPT/HCPCS: 36415; 70450; 80053; 80307; 84484; 84703; 85025; 87081; 93005; 93306; G0378; J1170; J1885; J0780; J7050

== ENCOUNTER 2020-11-19 16:00 | Inpatient (IN) | payer MEDICAID ==
[~2020-11-19] VITALS: Ht 152.4 cm; Wt 77.3 kg
[~2020-11-19 16:00] MED LIST changes: -ASPI-515 PO; -ASPI-650 PO; +ASPI-963 PO; +ASPI325T20 PO; +CLON1PAT TD; +DOXA4TAB3 PO; +HYDR-1067 PO; -HYDR-3240 PO; -HYDR-3245 PO; +HYDR1TAB53 PO; -LATA2.5D3 EACHEYE; +LATA2.5D4 EACHEYE; -LISI40TA PO; +LISI40TA9 PO; -OXYC5TAB3 PO; +OXYC5TAB98 PO
--- NOTE | 2020-11-19 16:07 | NUR ---
corrective therapy aide: EKG done in [facility]
--- NOTE | 2020-11-19 16:20 | NUR ---
PT CAME IN CO AU, CP, AND HTN. "I STARTED TO HAVE CP LAST NIGHT WELL A AU. WHEN I GET A BAD AU USUALLY MY BP IS ALSO REALLY HIGH". PT NORMOTENSIVE INTRIAGE, UNABLE TO RECHECK BP IN THE ROOM AT THIS TIME "THE CUFF IS TOO TIGHT YOU HAVE TO TAKE IT OFF". PT RESTING IN [facility]. EKG COMPLETE. CONNECTED TO ALL MONITORING EQUIPMENT
[2020-11-19] MEDS ORDERED: LABETALOL 5MG/ML, 20ML IVPush ONE ×2 (17:00→19:00)
[2020-11-19] MEDS ORDERED: SODIUM CHLORIDE FLUSH 10ML SYR IVF ONE (17:00)
[2020-11-19] MEDS ORDERED: LORazepam 2 MG/ML, 1ML IVPush ONE (17:00)
[2020-11-19] MEDS ORDERED: HYDROmorphone 2 MG/ML, 1ML IVPush ONE ×2 (17:00→19:00)
[2020-11-19] MEDS ORDERED: METOCLOPRAMIDE 5 MG/ML, 2ML IVPush ONE (17:00)
[2020-11-19] MEDS ORDERED: METOCLOPRAMIDE 5 MG/ML, 2ML ONE (17:02)
[2020-11-19] MEDS ORDERED: LABETALOL 5MG/ML, 20ML ONE ×2 (17:02→19:11)
[2020-11-19] MEDS ORDERED: LORazepam 2 MG/ML, 1ML ONE (17:02)
[2020-11-19] MEDS ORDERED: HYDROmorphone 1 MG/ML, 1ML INJ ONE ×3 (17:02→20:54)
[2020-11-19 17:26] LABS: BASOPHILS % (AUTO) 1 % (0-1); EOSINOPHILS % (AUTO) 0 % (1-7); LYMPHOCYTES % (AUTO) 23 % (22-44); MEAN CORPUSCULAR HEMOGLOBIN 32.2 pg (27.0-34.8); MEAN CORPUSCULAR HGB CONC 34.6 g/dL (32.4-35.8); MEAN PLATELET VOLUME 9.7 fL (7.4-10.4); MONOCYTES % (AUTO) 6 % (2-9); NEUTROPHILS % (AUTO) 71 % (42-75); PLATELET COUNT 159 x10^3/uL (130-400); RED BLOOD COUNT 5.04 x10^6/uL (3.82-5.3); RED CELL DISTRIBUTION WIDTH 13.2 % (9.6-15.2)
[2020-11-19 17:27] LABS: MD NO
[2020-11-19 17:37] LABS: ALANINE AMINOTRANSFERASE 20 U/L (12-78); ALBUMIN 4.1 g/dL (3.4-5.0); ANION GAP 11 mmol/L (5-15); CHLORIDE 108 mmol/L (98-107); CREATININE 2.18 mg/dL (0.55-1.02)
[2020-11-19 17:42] LABS: ALKALINE PHOSPHATASE 56 U/L (45-117); BILIRUBIN,TOTAL 0.9 mg/dL (0.2-1.0); TOTAL PROTEIN 7.2 g/dL (6.4-8.2); TROPONIN I 0.047 ng/mL (0.000-0.045)
[2020-11-19] MEDS ORDERED: ENALAPRILAT 1.25 MG/ML, 2ML ONE (18:00)
[2020-11-19] MEDS ORDERED: ASPIRIN 81 MG TABLET CHEW ONE (18:00)
[2020-11-19] MEDS ORDERED: POTASSIUM CHLORIDE 20 MEQ TAB.ER.PRT ONE (18:00)
[2020-11-19] MEDS ORDERED: POTASSIUM CHLORIDE 20 MEQ TAB.ER.PRT PO ONE (18:00)
[2020-11-19] MEDS ORDERED: ENALAPRILAT 1.25 MG/ML, 2ML IV ONE (18:00)
[2020-11-19] MEDS ORDERED: ASPIRIN 81 MG TABLET CHEW PO ONE (18:00)
--- NOTE | 2020-11-19 18:05 | NUR ---
PT RESTING IN [facility]. NOTIFIED OF BP. PT MEDICATED PER MAR
--- NOTE | 2020-11-19 18:31 | NUR ---
PT BP IMPROVING. WILL CONTINUE TO MONITOR
[2020-11-19] MEDS ORDERED: DOXAZOSIN 2MG TABLET PO ONE (19:00)
[2020-11-19] MEDS ORDERED: MAGNESIUM SULFATE PMX 2GM/50ML 50 ML IV ONE (19:00)
[2020-11-19] MEDS ORDERED: MAGNESIUM SULFATE/D5W 100 ML ONE (19:11)
[2020-11-19] MEDS ORDERED: MAGNESIUM SULFATE PMX 2GM/50ML 50 ML ONE (19:24)
--- NOTE | 2020-11-19 20:10 | NUR ---
HOSPITALIST BEDSIDE. PT TO BE MOVED TO TRAUMA ROOM.
--- NOTE | 2020-11-19 20:18 | NUR ---
RECEIVED REPORT FROM JITENDRA ORTEGA. PT AND ALL PERSONAL BELONGINGS MOVED TO TR03. PT BP NOTED TO REMAIN ELEVATED AT 229/140.
[2020-11-19] MEDS ORDERED: LIDODERM 5% PATCH TD PRN (20:30)
[2020-11-19] MEDS ORDERED: ONDANSETRON 2MG/ML, 2ML IVPush PRN (20:30)
[2020-11-19] MEDS ORDERED: ACETAMINOPHEN 325 MG TABLET PO PRN (20:30)
[2020-11-19] MEDS ORDERED: MELATONIN 5 MG TABLET PO PRN (20:30)
[2020-11-19] MEDS ORDERED: BISACODYL 10 MG SUPP PR PRN (20:30)
[2020-11-19] MEDS ORDERED: LORazepam 2 MG/ML, 1ML IVPush PRN (20:30)
--- NOTE | 2020-11-19 20:33 | NUR ---
NO ORDERS FOR NICARDIPINE. SPOKE W/ DR. ANN AND [facility] RADHA COTTO IN REGARDS TO ORDER. AWAITING ORDER.
--- NOTE | 2020-11-19 20:38 | NUR ---
SPOKE W/ APOLINAR CHRISTIANSON TECH IN REGARDS TO NEED FOR NICARDIPINE GTT.
--- NOTE | 2020-11-19 20:45 | NUR ---
REPORT GIVEN TO JITENDRA NOVOA.
--- NOTE | 2020-11-19 20:53 | NUR ---
REPORT TO JITENDRA SHAFFER
[2020-11-19] MEDS: HYDROmorphone 2 MG/ML, 1ML IVPush PRN (20:56)
[2020-11-19 20:58] VITALS: BP 206/128
[2020-11-20 00:48] LABS: TROPONIN I 0.047 ng/mL (0.000-0.045)
[2020-11-20] MEDS: HYDROmorphone 2 MG/ML, 1ML IVPush PRN ×5 (02:25→18:33)
[2020-11-20] MEDS ORDERED: HYDR50TA6 PO (02:32)
[2020-11-20] MEDS ORDERED: OXYC-307 PO (02:32)
[2020-11-20 03:59] LABS: BASOPHILS % (AUTO) 1 % (0-1); EOSINOPHILS % (AUTO) 0 % (1-7); LYMPHOCYTES % (AUTO) 25 % (22-44); MEAN CORPUSCULAR HEMOGLOBIN 32.3 pg (27.0-34.8); MEAN CORPUSCULAR HGB CONC 34.9 g/dL (32.4-35.8); MEAN PLATELET VOLUME 10.2 fL (7.4-10.4); MONOCYTES % (AUTO) 9 % (2-9); NEUTROPHILS % (AUTO) 65 % (42-75); PLATELET COUNT 139 x10^3/uL (130-400); RED BLOOD COUNT 4.85 x10^6/uL (3.82-5.3); RED CELL DISTRIBUTION WIDTH 13.3 % (9.6-15.2)
[2020-11-20 04:02] LABS: MD NO
[2020-11-20 04:08] LABS: ANION GAP 7 mmol/L (5-15); CALCIUM 8.3 mg/dL (8.5-10.1); CHLORIDE 110 mmol/L (98-107); CREATININE 1.89 mg/dL (0.55-1.02)
[2020-11-20 04:11] LABS: TROPONIN I 0.045 ng/mL (0.000-0.045)
[2020-11-20] MEDS: HEPARIN 5,000 UNITS/ML, 1ML SQ SCH ×3 (05:17→21:05)
[2020-11-20] MEDS ORDERED: POTASSIUM CHLORIDE 20 MEQ TAB.ER.PRT PO ONE (06:30)
[2020-11-20] MEDS: OXYcodone IR 5MG TABLET PO PRN ×2 (08:18→12:27)
[2020-11-20] MEDS ORDERED: HYDR-3248 PO (08:32)
[2020-11-20] MEDS ORDERED: LABETALOL 200 MG TABLET ONE (08:38)
[2020-11-20] MEDS: ASPIRIN 81 MG TABLET EC PO SCH (08:41)
[2020-11-20] MEDS: OMEPRAZOLE 20 MG CAPSULE.DR PO SCH (08:42)
[2020-11-20] MEDS: AMLODIPINE 10 MG TAB PO SCH (08:42)
[2020-11-20] MEDS: DOXAZOSIN 2MG TABLET PO SCH ×3 (08:42→21:05)
[2020-11-20] MEDS: LISINOPRIL 20 MG TABLET PO SCH ×2 (08:42→21:05)
[2020-11-20] MEDS: LABETALOL 300 MG TABLET PO SCH ×2 (08:42→21:06)
[2020-11-20] MEDS ORDERED: FUROSEMIDE 40 MG/4 ML IV ONE (10:00)
[2020-11-20] MEDS ORDERED: PRAVASTATIN 20 MG TABLET PO SCH (21:00)
[2020-11-21] MEDS: HYDROmorphone 2 MG/ML, 1ML IVPush PRN ×2 (00:08→04:22)
[2020-11-21 04:40] LABS: ANION GAP 8 mmol/L (5-15); CALCIUM 8.8 mg/dL (8.5-10.1); CHLORIDE 109 mmol/L (98-107); CREATININE 2.25 mg/dL (0.55-1.02)
[2020-11-21] MEDS: HEPARIN 5,000 UNITS/ML, 1ML SQ SCH (05:54)
[2020-11-21] MEDS ORDERED: ERGOCALCIFEROL 50,000 UNIT CAPSULE PO SCH (07:30)
[2020-11-21] MEDS ORDERED: HYDROcodone/APAP 10/325 MG TABLET PO PRN (07:30)
[2020-11-21] MEDS ORDERED: POTASSIUM CHLORIDE 20 MEQ PACKET PO SCH (08:00)
[2020-11-21] MEDS: OMEPRAZOLE 20 MG CAPSULE.DR PO SCH (08:07)
[2020-11-21] MEDS: ASPIRIN 81 MG TABLET EC PO SCH (08:07)
[2020-11-21] MEDS: LABETALOL 300 MG TABLET PO SCH (08:07)
[2020-11-21] MEDS: LISINOPRIL 20 MG TABLET PO SCH (08:07)
[2020-11-21] MEDS: AMLODIPINE 10 MG TAB PO SCH (08:07)
[2020-11-21] MEDS: DOXAZOSIN 2MG TABLET PO SCH (08:08)
[2020-11-21] MEDS ORDERED: HYDROCHLOROTHIAZIDE 25 MG TABLET PO SCH (09:00)
[2020-11-21] MEDS ORDERED: ERGO500017 PO (09:54)
== END 2020-11-21 13:00 | disposition home or self-care (01) | DRG 280 ==
LOC: ED 19:17 → EDIP 20:47 → CCU 21:02 → DCLOUNGE 11-21 12:52
PROVIDERS: ADMIT Family Medicine; ATTEND Internal Medicine
DX: I13.0 Hypertensive heart and chronic kidney disease with heart failure and stage 1 through stage 4 chronic kidney disease, or unspecified chronic kidney disease (principal); I21.A1 Myocardial infarction type 2; I50.31 Acute diastolic (congestive) heart failure; N17.0 Acute kidney failure with tubular necrosis; I16.1 Hypertensive emergency; N25.81 Secondary hyperparathyroidism of renal origin; E55.9 Vitamin D deficiency, unspecified; E78.5 Hyperlipidemia, unspecified; E87.6 Hypokalemia; F12.90 Cannabis use, unspecified, uncomplicated; G89.29 Other chronic pain; H54.62 Unqualified visual loss, left eye, normal vision right eye; J45.909 Unspecified asthma, uncomplicated; K21.9 Gastro-esophageal reflux disease without esophagitis; M54.5 Low back pain; N18.2 Chronic kidney disease, stage 2 (mild); V89.2XXA Person injured in unspecified motor-vehicle accident, traffic, initial encounter; Y92.410 Unspecified street and highway as the place of occurrence of the external cause; Z82.49 Family history of ischemic heart disease and other diseases of the circulatory system; Z87.891 Personal history of nicotine dependence; Z98.891 History of uterine scar from previous surgery; Z90.49 Acquired absence of other specified parts of digestive tract; Z88.5 Allergy status to narcotic agent; Z91.040 Latex allergy status
CPT/HCPCS: 36415; 70450; 71045; 80048; 80053; 82306; 83735; 83880; 83970; 84443; 84484; 85025; 87081; 93005; 93306; 96374; 96375; 99291; G0378; J1170; J1644; J1940; J2060; J2765; J3475; J7050

== ENCOUNTER 2021-03-01 11:36 | Emergency (ER) | payer MEDICAID ==
[~2021-03-01] VITALS: Ht 152.4 cm; Wt 71.9 kg
[~2021-03-01 11:36] MED LIST changes: +ERGO500017 PO; -HYDR-1067 PO; +HYDR-2214 PO; +HYDR-3248 PO; +HYDR50TA6 PO; -OMEP40CA42 PO; +OMEP40CA8 PO; +OXYC-307 PO
--- NOTE | 2021-03-01 12:10 | NUR ---
ASSUMED CARE OF PT. SHE HAS HAD AU X2 DAYS, WHICH OCCURED PREVIOUSLY R/T HIGH BP. PT REPORTS SHE HAS BEEN COMPLIANT W/ MEDICATION. INTERMITTENT N/V R/T AU DENIES [place]. PT HTN, OTHER VSS. HOOKED TO MONITOR. CALL LIGHT W/IN REACH. MD BEDSIDE.
[2021-03-01] MEDS ORDERED: DOXA8TAB63 PO (12:18)
[2021-03-01] MEDS ORDERED: LABETALOL 5MG/ML, 20ML IVPush ONE (12:30)
[2021-03-01] MEDS ORDERED: SODIUM CHLORIDE FLUSH 10ML SYR IVF ONE (12:30)
[2021-03-01] MEDS ORDERED: METOCLOPRAMIDE 5 MG/ML, 2ML IVPush ONE (12:30)
[2021-03-01] MEDS ORDERED: METOCLOPRAMIDE 5 MG/ML, 2ML ONE (12:55)
[2021-03-01] MEDS ORDERED: LABETALOL 5MG/ML, 20ML ONE (12:59)
[2021-03-01 13:05] LABS: ALBUMIN 4.3 g/dL (3.4-5.0); ANION GAP 9 mmol/L (5-15); BASOPHILS % (AUTO) 0 % (0-1); CALCIUM 9.5 mg/dL (8.5-10.1); CHLORIDE 104 mmol/L (98-107); CREATININE 2.11 mg/dL (0.55-1.02); EOSINOPHILS % (AUTO) 0 % (1-7); LYMPHOCYTES % (AUTO) 10 % (22-44); MEAN CORPUSCULAR HEMOGLOBIN 32.4 pg (27.0-34.8); MEAN CORPUSCULAR HGB CONC 35.3 g/dL (32.4-35.8); MEAN PLATELET VOLUME 9.7 fL (7.4-10.4); MONOCYTES % (AUTO) 4 % (2-9); NEUTROPHILS % (AUTO) 86 % (42-75); PLATELET COUNT 147 x10^3/uL (130-400); RED BLOOD COUNT 5.64 x10^6/uL (3.82-5.3); RED CELL DISTRIBUTION WIDTH 13.8 % (9.6-15.2)
[2021-03-01 13:07] LABS: MD NO
--- NOTE | 2021-03-01 13:07 | NUR ---
PT MEDICATED, SEE MAR. PT HTN, OTHER VSS. PT REPORTS AU STILL AND DRY HEAVES NOW. PT DISPLEASED W/ WHAT MD ORDERED BUT TOOK THEM. LIGHTS TURNED OFF, WARM BLANKET PROVIDED. CALL LIGHT W/IN REACH.
[2021-03-01 13:08] LABS: TROPONIN I 0.059 ng/mL (0.000-0.045)
--- NOTE | 2021-03-01 13:39 | NUR ---
PRECEPTOR RN: MED REQUESTED FROM PHARMACY.
--- NOTE | 2021-03-01 13:46 | NUR ---
SBAR REPORT GIVEN TO NORM-WHEN IN W/ PT UPDATING POC SHE STATES, "I CAN'T STAY TONIGHT, I HAVE NO ONE TO WATCH MY DAUGHTER." NORM IS NOTIFYING NOW.
--- NOTE | 2021-03-01 14:22 | NUR ---
D/T PT INABILITY TO STAY, HAS ORDERED LABETOLOL 10 MG Q5-10 MINUTES
[2021-03-01] MEDS: LABETALOL 5MG/ML, 20ML IVPush PRN ×2 (14:38→14:51)
--- NOTE | 2021-03-01 14:40 | NUR ---
PT MEDICATED PER DEC. NADN CALL LIGHT W/IN REACH DENIES NEEDING ANYTHING.
--- NOTE | 2021-03-01 14:54 | NUR ---
PT MEDICATED PER MAR, NOT MUCH IMPROVEMENT W/ BP. MD BEDSIDE AND IS AWARE. TALKING POC.
[2021-03-01] MEDS ORDERED: HYDROmorphone 1 MG/ML, 1ML INJ IV STA (14:55)
[2021-03-01] MEDS ORDERED: HYDROmorphone 1 MG/ML, 1ML INJ ONE (15:00)
[2021-03-01 15:06] VITALS: BP 249/156
--- NOTE | 2021-03-01 15:10 | NUR ---
d/t pt inability to stay in hospital pt is d/c though she verbalizes she knows she needs to stay but d/t her autistic daughter not having someone stay with her, is opting to go. pt medicated per mar. verbalizes understanding d/c instruction
== END 2021-03-01 15:28 | disposition home or self-care (01) ==
LOC: ED 12:59
DX: I12.9 Hypertensive chronic kidney disease with stage 1 through stage 4 chronic kidney disease, or unspecified chronic kidney disease (principal); N18.30 Chronic kidney disease, stage 3 unspecified; R51.9 Headache, unspecified; R74.8 Abnormal levels of other serum enzymes; R94.31 Abnormal electrocardiogram [ECG] [EKG]
CPT/HCPCS: 36415; 71045; 80048; 82040; 84484; 85025; 93005; 96374; 96375; 96376; 99285; J1170; J2765

== ENCOUNTER 2021-04-01 13:15 | Inpatient (IN) | payer MEDICAID ==
[~2021-04-01] VITALS: Ht 152.4 cm; Wt 73.6 kg
--- NOTE | 2021-04-01 13:27 | NUR ---
BP ON LEFT ARM WITH NO SBP READING, DBP 196. R ARM BP 286/181
[2021-04-01] MEDS ORDERED: LABETALOL 5MG/ML, 20ML ONE (13:35)
[2021-04-01] MEDS ORDERED: LABETALOL 5MG/ML, 20ML IVPush STA (13:40)
[2021-04-01] MEDS ORDERED: HYDROmorphone 1 MG/ML, 1ML INJ ONE ×2 (13:53→15:35)
--- NOTE | 2021-04-01 13:56 | NUR ---
MEDICATED WITH 1MG IV DILAUDID PER DR. ASHRAF.
--- NOTE | 2021-04-01 14:21 | NUR ---
PT REPORTS NORMAL BP FOR HER IS AROUND 200/80. BP IS BETTER AFTER LABETALOL 203/144.
[2021-04-01] MEDS ORDERED: ASPIRIN 81 MG TABLET CHEW ONE (14:27)
[2021-04-01 14:30] LABS: BASOPHILS % (AUTO) 1 % (0-1); EOSINOPHILS % (AUTO) 0 % (1-7); LYMPHOCYTES % (AUTO) 18 % (22-44); MEAN CORPUSCULAR HEMOGLOBIN 32.1 pg (27.0-34.8); MEAN CORPUSCULAR HGB CONC 34.7 g/dL (32.4-35.8); MEAN PLATELET VOLUME 9.9 fL (7.4-10.4); MONOCYTES % (AUTO) 6 % (2-9); NEUTROPHILS % (AUTO) 76 % (42-75); PLATELET COUNT 153 x10^3/uL (130-400); RED BLOOD COUNT 5.28 x10^6/uL (3.82-5.3); RED CELL DISTRIBUTION WIDTH 13.6 % (9.6-15.2)
[2021-04-01] MEDS ORDERED: SODIUM CHLORIDE FLUSH 10ML SYR IVF ONE (14:30)
[2021-04-01] MEDS ORDERED: ASPIRIN 81 MG TABLET CHEW PO ONE (14:30)
[2021-04-01 14:41] LABS: ALANINE AMINOTRANSFERASE 22 U/L (12-78); ALBUMIN 3.6 g/dL (3.4-5.0); ANION GAP 8 mmol/L (5-15); CALCIUM 8.9 mg/dL (8.5-10.1); CHLORIDE 106 mmol/L (98-107); CREATININE 1.97 mg/dL (0.55-1.02)
[2021-04-01 14:46] LABS: ALKALINE PHOSPHATASE 61 U/L (45-117); TOTAL PROTEIN 7.1 g/dL (6.4-8.2); TROPONIN I 0.054 ng/mL (0.000-0.045)
--- NOTE | 2021-04-01 15:31 | NUR ---
PT C/O AU WILL UPDATE ERMD.
--- NOTE | 2021-04-01 15:39 | NUR ---
VERBAL ORDER BY DR. ASHRAF FOR CLONIDINE 0.3MG PO AND 1MG IV DILAUDID, ORDER VERBALIZED AND CLARIFIED.
--- NOTE | 2021-04-01 15:40 | NUR ---
PT MEDICATED WITH 0.3MG CLONIDINE PO AND 1MG IV DILAUDID PER MD ORDER.
[2021-04-01] MEDS ORDERED: ACETAMINOPHEN 325 MG TABLET PO PRN (16:30)
[2021-04-01] MEDS ORDERED: POLYETHYLENE GLYCOL 17 GM PACKET PO PRN (16:30)
[2021-04-01] MEDS ORDERED: ONDANSETRON 2MG/ML, 2ML IVPush PRN (16:30)
[2021-04-01] MEDS ORDERED: BISACODYL 10 MG SUPP PR PRN (16:30)
[2021-04-01] MEDS ORDERED: HYDROmorphone 1 MG/ML, 1ML INJ IV ONE (17:00)
--- NOTE | 2021-04-01 17:18 | NUR ---
REPORT GIVEN TO AMADEO HAM.
[2021-04-01 17:30] VITALS: BP 186/118
[2021-04-01] MEDS: OXYcodone IR 5MG TABLET PO PRN (19:12)
[2021-04-01] MEDS: DOXAZOSIN 2MG TABLET PO SCH (20:52)
[2021-04-01] MEDS: LISINOPRIL 20 MG TABLET PO SCH (20:52)
[2021-04-01] MEDS ORDERED: PRAVASTATIN 20 MG TABLET PO SCH (21:00)
[2021-04-01] MEDS ORDERED: ZOLPIDEM 5MG TABLET PO PRN (21:00)
[2021-04-01] MEDS: HYDROmorphone 2 MG/ML, 1ML IVPush PRN ×2 (21:31→21:51)
[2021-04-01] MEDS: LABETALOL 300 MG TABLET PO SCH (21:50)
[2021-04-02] MEDS: HYDROmorphone 2 MG/ML, 1ML IVPush PRN ×3 (00:53→07:45)
[2021-04-02] MEDS: OXYcodone IR 5MG TABLET PO PRN ×3 (01:36→09:38)
[2021-04-02 04:37] LABS: ALANINE AMINOTRANSFERASE 15 U/L (12-78); ALBUMIN 2.9 g/dL (3.4-5.0); ANION GAP 8 mmol/L (5-15); CALCIUM 8.2 mg/dL (8.5-10.1); CHLORIDE 107 mmol/L (98-107); CREATININE 2.08 mg/dL (0.55-1.02)
[2021-04-02 04:38] LABS: BASOPHILS % (AUTO) 1 % (0-1); EOSINOPHILS % (AUTO) 0 % (1-7); LYMPHOCYTES % (AUTO) 29 % (22-44); MEAN CORPUSCULAR HEMOGLOBIN 32.2 pg (27.0-34.8); MEAN CORPUSCULAR HGB CONC 34.9 g/dL (32.4-35.8); MEAN PLATELET VOLUME 9.2 fL (7.4-10.4); MONOCYTES % (AUTO) 8 % (2-9); NEUTROPHILS % (AUTO) 63 % (42-75); PLATELET COUNT 123 x10^3/uL (130-400); RED BLOOD COUNT 4.59 x10^6/uL (3.82-5.3); RED CELL DISTRIBUTION WIDTH 13.7 % (9.6-15.2)
[2021-04-02 04:40] LABS: ALKALINE PHOSPHATASE 46 U/L (45-117); BILIRUBIN,TOTAL 0.8 mg/dL (0.2-1.0); TOTAL PROTEIN 5.6 g/dL (6.4-8.2)
[2021-04-02] MEDS: LABETALOL 300 MG TABLET PO SCH (05:35)
[2021-04-02] MEDS ORDERED: OMEPRAZOLE 20 MG CAPSULE.DR PO SCH (06:00)
[2021-04-02] MEDS ORDERED: POTASSIUM CHLORIDE 20 MEQ TAB.ER.PRT PO ONE (07:30)
[2021-04-02] MEDS: LISINOPRIL 20 MG TABLET PO SCH (07:45)
[2021-04-02] MEDS: DOXAZOSIN 2MG TABLET PO SCH (07:50)
[2021-04-02] MEDS ORDERED: SENNA/DOCUSATE TABLET PO SCH (09:00)
[2021-04-02] MEDS ORDERED: HYDROCHLOROTHIAZIDE 25 MG TABLET PO SCH (09:00)
== END 2021-04-02 10:54 | disposition home or self-care (01) | DRG 304 ==
LOC: ED 14:28 → EDIP 16:18 → CCU 17:34 → DCLOUNGE 04-02 10:51
PROVIDERS: ADMIT Internal Medicine; ATTEND Internal Medicine
DX: I16.1 Hypertensive emergency (principal); N17.0 Acute kidney failure with tubular necrosis; E78.5 Hyperlipidemia, unspecified; E87.6 Hypokalemia; F12.90 Cannabis use, unspecified, uncomplicated; G89.29 Other chronic pain; H54.62 Unqualified visual loss, left eye, normal vision right eye; H53.9 Unspecified visual disturbance; R73.9 Hyperglycemia, unspecified; I12.9 Hypertensive chronic kidney disease with stage 1 through stage 4 chronic kidney disease, or unspecified chronic kidney disease; J45.909 Unspecified asthma, uncomplicated; K21.9 Gastro-esophageal reflux disease without esophagitis; N18.30 Chronic kidney disease, stage 3 unspecified; Z82.49 Family history of ischemic heart disease and other diseases of the circulatory system; Z86.73 Personal history of transient ischemic attack (TIA), and cerebral infarction without residual deficits; Z87.891 Personal history of nicotine dependence; Z98.891 History of uterine scar from previous surgery; Z90.49 Acquired absence of other specified parts of digestive tract; Z88.6 Allergy status to analgesic agent; Z88.1 Allergy status to other antibiotic agents; Z91.040 Latex allergy status; Z88.5 Allergy status to narcotic agent; Z88.8 Allergy status to other drugs, medicaments and biological substances; Z91.018 Allergy to other foods
CPT/HCPCS: 36415; 70450; 71045; 80053; 84484; 85025; 87081; 93005; 96374; 96375; G0378; J1170; J7050